=== PATIENT | female | born 1955 | race Caucasian/White ===

== ENCOUNTER → 2021-03-05 12:43 | Outpatient (CLI) | payer MEDICARE, OTHER, SELFPAY ==
--- NOTE | ~2021-03-05 | US_ITS ---
EXAMINATION: US thyroid DATE: 03/05/2021 13:01 INDICATION: Nontoxic goiter TECHNIQUE: Multiple ultrasound images of the thyroid were obtained. COMPARISON: None. FINDINGS: The right thyroid lobe measures 1.8 x 0.8 x 0.5 cm. The left thyroid lobe measures 2.2 x 0.6 x 0.6 c m. The thyroid isthmus measures 1 mm in thickness. There is coarsened echotexture throughout the thyr oid. No discrete nodules identified. IMPRESSION: 1. Small thyroid with coarsened echotexture which could represent sequela of chronic thyroiditis. Reviewed, dictated and finalized at location A. IMPRESSION: 1. Small thyroid with coarsened echotexture which could represent sequela of ch ronic thyroiditis.
== END ==
PROVIDERS: PCP Family Medicine; Visit Provider Nurse Practitioner Family
DX: E04.9 Nontoxic goiter, unspecified (principal)
CPT/HCPCS: 76536

== ENCOUNTER 2021-05-29 01:27 | Day surgery (SDC) | payer MEDICARE, OTHER, SELFPAY ==
[2021-05-15 14:38] VITALS: BMI 29.2
[2021-05-29 09:01] VITALS: BP 144/91; PULSE 77; RESP 18; TEMP 36.2; O2SAT 100; BMI 28.0
[2021-05-29] MEDS: LACTATED RINGERS 1,000 ML 150 ML IV CONT (09:11)
--- NOTE | 2021-05-29 09:17 | WPDGICN ---
Assessment and Plan Assessment and plan (1) Encounter for screening colonoscopy: Code(s): Z12.11 - Encounter for screening for malignant neoplasm of colon Status: Acute Assessment and Plan: Patient presents for screening colonoscopy. Appears to be at average risk for colon polyps. GI Consult Note Consult date/time: 05/29/21 09:17 HPI: Krys Heard is a 66 year old female Presents for neoplasia screening colonoscopy. Patient reports that her current weight appetite bowel movements are normal. Patient denies abdominal pain. She has had no bleeding. Her family history is noncontributory. Review of Systems Review of Systems: All systems reviewed & are unremarkable except as noted in HPI and below PMFSH Past Medical History Medical History (Updated 05/29/21 @ 09:18 by Alfonso Iglesias MD) Acquired hypothyroidism Actinic keratosis Adult general medical exam Anxiety B12 deficiency BMI 29.0-29.9,adult Depression Encounter for general adult medical examination without abnormal findings Encounter for vitamin deficiency screening Essential hypertension Exposure to COVID-19 virus Fatigue Folliculitis Gastro-esophageal reflux disease without esophagitis Hematoma of right lower extremity Hospital discharge follow-up Hypercholesterolemia Hypertension 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 Other Family history of malignant neoplasm Social History Social History Smoking status: Never smoker Second hand tobacco smoke exposure: Yes Alcohol intake: current Alcohol use details: social Substance use: never Substance use type: does not use Living arrangements: with family Additional occupation/education comments: self employed Gender identity (if verbalized by the patient): Female Spiritual care concerns: No Meds Home Medications and Allergies Home Medications Medication Instructions Recorded Confirmed Type aspirin 81 mg tablet,delayed 81 mg PO DAILY #1 tablet 09/01/19 05/15/21 Rx release cyanocobalamin (vitamin B-12) 1,000 mcg PO DAILY #1 cap 09/01/19 05/15/21 Rx 1,000 mcg capsule estradiol 1 g VAGINAL 2XW g 07/17/20 05/15/21 History paroxetine HCl 20 mg tablet 20 mg PO DAILY #90 tablet 02/19/21 05/15/21 Rx Synthroid 100 mcg tablet See Rx Instructions .ROUTE 02/27/21 05/15/21 Rx .COMPLEX #90 tablet NS atorvastatin 10 mg tablet 10 mg PO DAILY #90 tablet 02/27/21 05/15/21 Rx omeprazole 40 mg capsule,delayed 40 mg PO DAILY #90 cap 02/27/21 05/15/21 Rx release oxybutynin chloride 15 mg See Rx Instructions .ROUTE 02/27/21 05/15/21 Rx tablet,extended release 24 hr .COMPLEX #90 tablet perindopril erbumine 4 mg tablet See Rx Instructions .ROUTE 02/27/21 05/15/21 Rx .COMPLEX #90 tablet cholecalciferol (vitamin D3) 1,250 50,000 unit PO WEEKLY #8 cap 05/15/21 05/15/21 Rx mcg (50,000 unit) capsule Allergies Allergy/AdvReac Type Severity Reaction Status Date / Time Sulfa (Sulfonamide AdvReac Unknown Hives Verified 05/29/21 09:00 Antibiotics) NFA Allergy Unknown Unknown Uncoded 05/29/21 09:00 ADHESIVE TAPE, LAMB
--- NOTE | 2021-05-29 09:21 | WPDANESEPPF ---
Anes - Initial Pre Proc Eval Procedure: Operation Date: 05/29/21 10:00 Proposed Procedures p Screening Colonoscopy - Alfonso Iglesias MD Date/Time: 05/29/21 09:21 Surgeon: Alfonso Iglesias MD Pre Op Diagnosis: neoplasm screening Patient Data Age: 66 Gender: F Height: 1.63 m Weight: 74.2 kg Last Vital Signs Temp 97.2 F L 05/29/21 09:01 Pulse 77 05/29/21 09:01 Resp 18 05/29/21 09:01 BP 144/91 H 05/29/21 09:01 Pulse Ox 100 05/29/21 09:01 Allergies Allergy/AdvReac Type Severity Reaction Status Date / Time Sulfa (Sulfonamide AdvReac Unknown Hives Verified 05/29/21 09:00 Antibiotics) NFA Allergy Unknown Unknown Uncoded 05/29/21 09:00 ADHESIVE TAPE, SULFA AdvReac Unknown Rash Uncoded 05/29/21 09:00 Home Medications Medication Instructions Recorded Confirmed Type aspirin 81 mg tablet,delayed 81 mg PO DAILY #1 tablet 09/01/19 05/15/21 Rx release cyanocobalamin (vitamin B-12) 1,000 mcg PO DAILY #1 cap 09/01/19 05/15/21 Rx 1,000 mcg capsule estradiol 1 g VAGINAL 2XW g 07/17/20 05/15/21 History paroxetine HCl 20 mg tablet 20 mg PO DAILY #90 tablet 02/19/21 05/15/21 Rx Synthroid 100 mcg tablet See Rx Instructions .ROUTE 02/27/21 05/15/21 Rx .COMPLEX #90 tablet NS atorvastatin 10 mg tablet 10 mg PO DAILY #90 tablet 02/27/21 05/15/21 Rx omeprazole 40 mg capsule,delayed 40 mg PO DAILY #90 cap 02/27/21 05/15/21 Rx release oxybutynin chloride 15 mg See Rx Instructions .ROUTE 02/27/21 05/15/21 Rx tablet,extended release 24 hr .COMPLEX #90 tablet perindopril erbumine 4 mg tablet See Rx Instructions .ROUTE 02/27/21 05/15/21 Rx .COMPLEX #90 tablet cholecalciferol (vitamin D3) 1,250 50,000 unit PO WEEKLY #8 cap 05/15/21 05/15/21 Rx mcg (50,000 unit) capsule Patient hx anesthesia problems: none Family hx anesthesia problems: none PMFSH Past Medical History Medical History (Updated 05/29/21 @ 09:18 by Alfonso Iglesias MD) Acquired hypothyroidism Actinic keratosis Adult general medical exam Anxiety B12 deficiency BMI 29.0-29.9,adult Depression Encounter for general adult medical examination without abnormal findings Encounter for vitamin deficiency screening Essential hypertension Exposure to COVID-19 virus Fatigue Folliculitis Gastro-esophageal reflux disease without esophagitis Hematoma of right lower extremity Hospital discharge follow-up Hypercholesterolemia Hypertension Influenza vaccination administered at current visit retirement current use of therapeutic drug Mass of right knee Reflux laryngitis Screening for malignant neoplasm of colon Skin cancer screening Solar lentigo Transient cerebral ischemia Upper respiratory infection, acute Urticaria of entire body Surgical History Surgical History History of bilateral breast reduction surgery 2009 History of delivery 1985 Family History Family History Father Hypertension Family history of arthritis Family history of chronic obstructive pulmonary disease Malignant neoplasm of prostate Heart disease Mother Hypertension Family history of arthritis Heart disease Sibling No problems noted. Other Family history of malignant neoplasm Social History Social History Smoking status: Never smoker Second hand tobacco smoke exposure: Yes Alcohol intake: current Alcohol use details: social Substance use: never Substance use type: does not use Living arrangements: with family Additional occupation/education comments: self employed Gender identity (if verbalized by the patient): Female Spiritual care concerns: No Anes - Eval Final PreProcedure Day of Procedure 05/29/21 09:21 Patient weight: overweight Heart: regular rate and rhythm Lungs: clear to auscultation Airway: Mallampati sc
[2021-05-29 10:10] VITALS: BP 99/56; PULSE 84; RESP 18; O2SAT 97
[2021-05-29 10:20] VITALS: BP 107/74; PULSE 58; RESP 18; O2SAT 100
[2021-05-29 10:30] VITALS: BP 127/87; PULSE 55; RESP 18; O2SAT 100
== END 2021-05-29 10:43 | disposition home or self-care (01) ==
PROVIDERS: PCP Family Medicine; Visit Provider Internal Medicine Gastroenterology
PROC: 0DJD8ZZ Inspection of Lower Intestinal Tract, Via Natural or Artificial Opening Endoscopic (ICD-10-PCS; CPT 45378; principal; 2021-05-29 10:00)
DX: Z12.11 Encounter for screening for malignant neoplasm of colon (principal); K64.8 Other hemorrhoids; E03.9 Hypothyroidism, unspecified; F41.8 Other specified anxiety disorders; I10 Essential (primary) hypertension; E78.00 Pure hypercholesterolemia, unspecified; K21.9 Gastro-esophageal reflux disease without esophagitis; E53.8 Deficiency of other specified B group vitamins; Z79.82 Long term (current) use of aspirin
CPT/HCPCS: G0121; J2704; J7120

== ENCOUNTER 2022-01-16 06:44 | Outpatient (CLI) | payer MEDICARE, OTHER, SELFPAY ==
--- NOTE | ~2022-01-16 | XR_ITS ---
EXAMINATION: XR abdomen/kub 1V EXAM DATE: 01/16/2022 07:03 INDICATION: Microscopic hematuria. TECHNIQUE: Frontal projection of the upper abdomen, frontal projection lower abdomen/pelvis for inter pretation. There is no prior study for comparison. FINDINGS: There is expected amount of colonic stool and gas. No small bowel dilation, nonobstructiv e bowel gas pattern. There are no suspicious calcifications identified. There is no organomegaly suspected. The bones are unremarkable. There is no free intraperitoneal air. The lung bases are clear. IMPRESSION: Unremarkable abdomen x-ray exam. Reviewed, dictated and finalized at location A.
--- NOTE | ~2022-01-16 | CT_ITS ---
EXAMINATION: CT abdomen pelvis wo/w con EXAM DATE: 01/16/2022 07:29 INDICATION: Microscopic hematuria. TECHNIQUE: Spiral CT of the abdomen and pelvis was performed without contrast. The patient was then injected with small bolus intravenous Omnipaque 350, followed by delay of approximately 10 minutes to allow collecting system to opacify. A post contrast scan abdomen and pelvis was performed during inj ection of remaining contrast. A total of 130 cc intravenous contrast was administered. The dose-femi th product (DLP) for this examination was 1314.56 mGy-cm. The exposure was tailored according to pat ient size (auto mA exposure control), and iterative reconstruction (ASIR) was used as additional dose reduction technique. There is no prior study for comparison. FINDINGS: There is no hydronephrosis or nephrolithiasis. The kidneys enhance symmetrically. There a re no suspicious renal lesions. The calyces and opacified portions of ureters are unremarkable, with out filling defects or focal suspicious strictures. Mild bladder wall trabeculation and diffuse blad silvia wall thickening, could indicate chronic cystitis. The uterus is unremarkable. The liver, spleen, adrenal glands and pancreas are unremarkable. Gallbladder is unremarkable. No bi liary obstruction. There is no retroperitoneal or pelvic lymphadenopathy. The appendix is normal. The stomach and small bowel are unremarkable. There is expected amount of c olonic stool. No free intraperitoneal gas. The heart is normal in size. There are no pericardial or pleural effusions. The lung bases are unremarkable. There are no osteoblastic or osteolytic lesi ons identified. IMPRESSION: Mild bladder wall trabeculation and diffuse thickening without focal mass suspected. Cons ider chronic cystitis. Reviewed, dictated and finalized at location A. IMPRESSION: Mild bladder wall trabeculation and diffuse thickening without foca l mass suspected. Consider chronic cystitis.
[2022-01-16 07:12] LABS: Estimated Glomerular Filt Rate > 60
== END 2022-01-16 06:45 | disposition home or self-care (01) ==
LOC: ANHIMG 06:47
PROVIDERS: PCP Family Medicine; Visit Provider Urology
DX: R31.29 Other microscopic hematuria (principal)
CPT/HCPCS: 74018; 74178; Q9967

== ENCOUNTER 2022-07-09 14:51 | Emergency (ER) | payer OTHER, MEDICARE, SELFPAY ==
--- NOTE | ~2022-07-09 | XR_ITS ---
EXAMINATION: XR hand LT min 3V INDICATION: Left hand pain TECHNIQUE: Three views of the left hand are obtained. COMPARISON: None available FINDINGS: Bone alignment is normal. There is no fracture. Soft tissue swelling is seen adjacent to th e fifth metacarpal. 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 IMPRESSION: 1. No acute osseous abnormality. Reviewed, dictated and finalized at location A.
[2022-07-09 15:00] VITALS: BP 134/80; PULSE 89; RESP 18; TEMP 37.4; O2SAT 96
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
== END 2022-07-09 15:43 | disposition home or self-care (01) ==
PROVIDERS: Emergency Provider Nurse Practitioner; PCP Family Medicine
DX: S63.92XA Sprain of unspecified part of left wrist and hand, initial encounter (principal); S66.912A Strain of unspecified muscle, fascia and tendon at wrist and hand level, left hand, initial encounter; V49.9XXA Car occupant (driver) (passenger) injured in unspecified traffic accident, initial encounter; E03.9 Hypothyroidism, unspecified; I10 Essential (primary) hypertension; K21.9 Gastro-esophageal reflux disease without esophagitis; F41.9 Anxiety disorder, unspecified; F32.A Depression, unspecified; Z86.73 Personal history of transient ischemic attack (TIA), and cerebral infarction without residual deficits
CPT/HCPCS: 73130; 99213; G0463

== ENCOUNTER 2022-12-30 08:00 | Outpatient (NON) | payer MEDICARE, OTHER, SELFPAY | END 2022-12-30 08:01 | disposition home or self-care (01) | LOC: ANHLAB 12-31 11:58 | PROVIDERS: PCP Family Medicine; Visit Provider Nurse Practitioner | DX: L30.9 Dermatitis, unspecified (principal); L81.4 Other melanin hyperpigmentation | CPT/HCPCS: 88305 ==

== ENCOUNTER 2024-02-05 12:48 | Outpatient (CLI) | payer MEDICARE, OTHER, SELFPAY | END 2024-02-05 12:49 | disposition home or self-care (01) | LOC: ANHAUDASC 12:48 | PROVIDERS: PCP Family Medicine; Visit Provider Otolaryngology | DX: H93.13 Tinnitus, bilateral (principal); H90.3 Sensorineural hearing loss, bilateral | CPT/HCPCS: 92557; 92567 ==

== ENCOUNTER 2025-08-22 13:41 | Outpatient (CLI) | payer MEDICARE, OTHER, SELFPAY ==
--- NOTE | ~2025-08-22 | US_ITS ---
US thyroid INDICATION: Hypothyroidism TECHNIQUE: Real-time sonographic images of the thyroid gland were obtained. COMPARISON: Ultrasound dated 03/05/2021 FINDINGS: The right thyroid lobe measures 1.8 x 0.7 x 0.8 cm. The left thyroid lobe measures 1.9 x 0.6 x 0.7 cm. Thyroid gland is diffusely atrophic with coarse heterogeneous echotexture. No discrete mass. IMPRESSION: 1. Atrophic coarse heterogeneous thyroid gland without discrete mass.. Reviewed, dictated and finalized at location O. PROJECT MANAGER
== END 2025-08-22 13:42 | disposition home or self-care (01) ==
LOC: GOSHIMG 13:42
PROVIDERS: PCP Family Medicine; Visit Provider Nurse Practitioner Family
DX: E03.9 Hypothyroidism, unspecified (principal); E04.9 Nontoxic goiter, unspecified
CPT/HCPCS: 76536